=== PATIENT | female | born 1960 | race Caucasian/White ===

== ENCOUNTER 2017-02-23 08:18 | Emergency (ER) | payer BC ==
[2017-02-23] MEDS ORDERED: SUCRALFATE 1 G/10 ML UDC PO ONE (08:57)
[2017-02-23] MEDS ORDERED: MAG HYDROX/ALUMINUM HYD/SIMETH 30 ML UDC PO ONE (08:57)
[2017-02-23] MEDS ORDERED: LIDOCAINE HCL 20 ML UDC PO ONE (08:57)
--- NOTE | 2017-02-23 09:08 | ERNOTE ---
Medical Problem HPI - Narrative Date of Service: 02/23/17 - General Chief Complaint: General Assessment Time Seen by Provider: 02/23/17 08:47 Source: patient Exam Limitations: no limitations - Immun/Allergies/Home Medications Immunizations: IMMUNIZATION HX Immunizations Up to Date Yes History of Influenza Vaccine No Hx Pneumococcal Vaccination No Allergies/Adverse Reactions: Allergies No Known Allergies Allergy (Unverified 02/23/17 08:33) Home Medications: HOME MEDICATIONS Amox Tr/Potassium Clavulanate [Augmentin 875-125 Tablet] 875 mg PO Q12H #20 tab 02/23/17 [Last Taken Unknown] Sucralfate [Carafate] 1 gm PO QID #120 tab 02/23/17 [Last Taken Unknown] - History of Present History Narrative: 56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 She says she has been under stress for last month. had IN and two weeks ago her mom has IN with complications. She noted yesterday her BP was 160 systolic which is above her normal of 110. Her CP has been associated with indigestion. She has reflux symptoms (pyrosis) but has been more frequent lately. Has has had a dull headache which also been intermittent. Denies vision changes, near syncope, SOB, diaphoresis. Review of Systems - Review of Systems Constitutional: Present: no symptoms reported EYE: Present: no symptoms reported ENT: Present: no symptoms reported Respiratory: Present: no symptoms reported Gastrointestinal/Abdominal: Present: no symptoms reported Neurological: Present: no symptoms reported - Patient's Past Medical History Patient History - Medical: No pertinent hx Patient History - Cardiac/Respiratory: No pertinent hx Patient History - Cancer: No Hx of Cancer Patient History - Surgical Procedures: Appendectomy, Cholecystectomy, Tubal Ligation Patient History - Other: None LMP (females 10-50): other - Social History Living Situations: spouse Abuse History: No History of abuse Psych History: No pertinent hx Smoking Status: Former smoker Have you smoked in the past 12 months: No Do you dip or chew tobacco: No Alcohol Use: none Drug Use: none - Immunizations Immunizations Up to Date: Yes Hx Pneumococcal Vaccination: No History of Influenza Vaccine: No Physical Exam - Physical Exam General Appearance: Present: wd/wn, alert, no apparent distress Head Exam: Present: normal inspection Eye Exam: Normal inspection: bilateral Ears, Nose, Throat: Present: pharyngeal erythema Neck: Present: normal inspection, lymphadenopathy (R), lymphadenopathy (L) Respiratory: Present: no respiratory distress Cardiovascular/Chest: Present: regular rate, rhythm, no murmur Gastrointestinal/Abdominal: Present: nontender, soft Extremity Exam: Present: non-tender, pedal edema - trace Neurological Exam: Present: alert, oriented, no motor/sensory deficits ED Progress - Results and Orders Patient's Lab Results:: I have reviewed the patient's lab results. - Vital Signs Patient's Vital Signs:: I have reviewed the patient's vital signs. Vital Signs: Vital Signs 02/23/17 08:27 Temperature 37.2 C Pulse Rate 73 Respiratory 14 Rate Blood Pressure 146/76 O2 Sat by Pulse 98 Oximetry - EKG EKG: NSR EKG read: Reviewed by me - Progress/Reassessment Chief Complaint: General Assessment Plan - Plan Plan: Augmentin Carafate and pepcid follow up with PCP Departure Clinical Impression: GERD (gastroesophageal reflux disease), Pharyngitis, Anxiety - Departure Disposition: Home self-care Condition: Good Instructions: Indigestion, [id number] Additional Instructions: Take augmentin as directed Take carafate 30 min prior to eating and at bedtime Use pepcid 20 mg twice a day Elevate HOB 10-12 inches Follow up with PCP Prescriptions: Amox Tr/Potassium Clavulanate [Augmentin 875-125 Tablet] 875 mg PO Q12H #20 tab Sucralfate [Carafate] 1 gm PO QID #120 tab
[2017-02-23 09:15] LABS: Hematocrit 38.1 % (37.0-47.0); Hemoglobin 12.3 gm/dL (12.5-16.0); Mean Cell Volume 85.2 fl (78-100); Mean Corpuscular Hemoglobin 27.5 pg (27-31); Mean Corpuscular Hgb Conc 32.3 g/dl (32-36); Mean Platelet Volume 9.9 fl (6.0-9.5); Neutrophil % 55.9 % (42-75.0); Platelet Count 236 K/mm3 (150-450); Red Blood Count 4.47 M/mm3 (4.2-5.4); White Blood Count 7.2 K/mm3 (4.0-10.5)
[2017-02-23 09:36] LABS: Troponin I Less than 0.017 ng/ml (0.00-0.10)
[2017-02-23 09:40] LABS: ALT 38 U/L (19-67); AST 25 U/L (0-48); Albumin * 3.8 gm/dl (3.4-5.0); Alkaline Phosphatase * 79 U/L (50-170); Anion Gap 15.3 mmol/L (6.8-13.8); BUN/Creatinine Ratio 15.8 (9.0-21.6); Bilirubin, Total 0.2 mg/dL (0.0-1.1); Blood Urea Nitrogen 15 mg/dL (3-23); Ca. Corrected For Albumin 8.9 mg/dL (8.4-10.2); Calcium * 9.1 mg/dL (7.9-10.9); Carbon Dioxide 25.6 mmol/L (24-32.6); Chloride 106 mmol/L (97-106); Glucose * 96 mg/dL (70-110); Potassium 3.9 mmol/L (3.4-4.6); Sodium 143 mmol/L (132-142); TSH * 2.453 uIU/mL (0.358-3.74)
[2017-02-23 10:45] VITALS: BP 136/78
== END 2017-02-23 10:41 | disposition home or self-care (01) ==
LOC: ER 08:18
DX: K21.9 Gastro-esophageal reflux disease without esophagitis (principal); J02.9 Acute pharyngitis, unspecified; F41.9 Anxiety disorder, unspecified; Z87.891 Personal history of nicotine dependence